=== PATIENT | male | born 1995 ===

== ENCOUNTER 2021-03-05 16:28 | Emergency (ER) | payer MEDICARE, OTHER ==
[~2021-03-05] VITALS: Ht 185.4 cm; Wt 95.2 kg
[~2021-03-05 16:28] MED LIST: IBUPROFEN600 MG PO; NORCO 5-325 TA1 EACH PO
--- OUTSIDE RECORDS SUMMARY | 2021-03-05 16:36 | XMS ---
PreManage Notification: LEXI MORENO Security Records Technician Events No recent Security Events currently on file CRITERIA MET - [place] [id number] Visits in 30 Days [facility] PH[facility]: [phone] Care Guidelines exist for the following facilities: [facility] ( 07/12/2019 ) Juan Luis VISIT COUNT (12 MO.) [address] [place] [address] TOTAL 2 NOTE: Visits indicate total known visits. ED/UCC VISIT TRACKING (12 MO.) 03/05/2021 16:29 [facility]SE [facility] [place] TYPE: Emergency COMPLAINT: - COLD SYMPTOMS 03/04/2021 18:42 [facility] [place] TYPE: Emergency COMPLAINT: - COLD SYMPTOMS INPATIENT VISIT TRACKING (12 MO.) No inpatient visits to display in this time frame [email or web address]
== END 2021-03-05 19:55 | disposition home or self-care (01) ==
LOC: ED 16:28
DX: R06.02 Shortness of breath (principal); R05.9 Cough, unspecified; R07.9 Chest pain, unspecified; R50.9 Fever, unspecified; U09.9 Post COVID-19 condition, unspecified
CPT/HCPCS: 71046; 99284-25